=== PATIENT | female | born 1950 | race Caucasian/White ===

== ENCOUNTER → 2017-02-27 | Outpatient (CLI) | payer MEDICARE ==
--- NOTE | 2017-02-27 10:21 | MM ---
Reason for exam: follow-up at short interval from prior study. Last mammogram was performed 7 months ago. History: Patient is postmenopausal, has history of breast cancer at age 59, and previous chest radiation therapy. Excisional biopsy of the right breast, March 02, 2009. Lumpectomy of the right breast, March 02, 2009. Malignant US right guided VAD of the right breast, February 04, 2009. Benign US right guided mammotome of the right breast, March 19, 2008. Benign US right guided mammotome of the right breast, March 19, 2008. Benign left mammotome panel of the left breast, February 12, 2007. Benign excisional biopsy of the left breast, March 01, 1998. 2 radiation therapies of the right breast. Took hormonal contraceptives for 10 years. Took estrogen for 8 years beginning at age 51. Taking antineoplastic for 4 years beginning at age 59. Physical Findings: Nurse did not find any significant physical abnormalities on exam. MG 3D Diag Mammo W/Cad QUINTEN Bilateral CC and MLO view(s) were taken. Prior study comparison: August 10, 2016, left breast MG 3d diag mammo w/cad LT. February 07, 2016, left breast MG 3d work up w/cad LT. January 27, 2015, bilateral MG diagnostic mammo w CAD QUINTEN. January 20, 2014, CAD bilateral diagnostic mammogram. The breast tissue is heterogeneously dense. This may lower the sensitivity of mammography. Previous mammotome biopsy in the right and left breast. There is chronic nodularity bilaterally. Post surgical and post therapy changes in the right breast. Questionable new nodular asymmetry superior right breast at a middle depth without clear correlation on the CC view. These results were verbally communicated with the patient and result sheet given to the patient on 02/27/17. ASSESSMENT: Incomplete: need additional imaging evaluation, BI-RAD 0 RECOMMENDATION: Ultrasound of the left breast. (follow up from prior)
--- NOTE | 2017-02-27 10:28 | USB ---
Reason for exam: additional evaluation requested from abnormal screening. History: Patient is postmenopausal, has history of breast cancer at age 59, and previous chest radiation therapy. Excisional biopsy of the right breast, March 02, 2009. Lumpectomy of the right breast, March 02, 2009. Malignant US right guided VAD of the right breast, February 04, 2009. Benign US right guided mammotome of the right breast, March 19, 2008. Benign US right guided mammotome of the right breast, March 19, 2008. Benign left mammotome panel of the left breast, February 12, 2007. Benign excisional biopsy of the left breast, March 01, 1998. 2 radiation therapies of the right breast. Took hormonal contraceptives for 10 years. Took estrogen for 8 years beginning at age 51. Taking antineoplastic for 4 years beginning at age 59. US Breast LT Left breast ultrasound includes all four quadrants, the retroareolar region and axilla. Finding demonstrate a 0.7 x 0.5 x 0.8cm oval, cystic lesion at 1 o'clock , a 0.5 x 0.4 x 0.4cm round cystic lesion at 10 o'clock, a 0.3 x 0.2 x 0.3cm oval lesion too small to characterize at 11 o'clock, a 0.7 x 0.5 x 0.6cm cystic lesion at 11 o'clock echoes likely artifactual from deep positioning, a 0.3 x 0.3 x 0.4cm lesion too small to characterize at 11 o'clock and a 0.8 x 0.5 x 0.7cm oval, cystic cluster at 1 o'clock, 6 x 5 x 7mm previously, not significantly changed suggesting a benign etiology. These results were verbally communicated with the patient and result sheet given to the patient on 02/27/17. ASSESSMENT: Probably benign, BI-RAD 3 RECOMMENDATION: Follow-up diagnostic mammogram in 6 months. (right, for findings on mammogram of the same day) [facility]
== END | disposition home or self-care (01) ==
LOC: RADMAMWWP 07:37
PROVIDERS: ATTEND Internal Medicine
DX: R92.8 Other abnormal and inconclusive findings on diagnostic imaging of breast (principal)
CPT/HCPCS: 76641; G0204; G0279

== ENCOUNTER → 2018-12-05 | Outpatient (CLI) | payer MEDICARE ==
--- NOTE | 2018-12-09 11:01 | MM ---
Reason for exam: additional evaluation requested from prior study. Last mammogram was performed 1 year and 3 months ago. History: Patient is postmenopausal, has history of breast cancer at age 59, and previous chest radiation therapy. Excisional biopsy of the right breast, March 02, 2009. Lumpectomy of the right breast, March 02, 2009. Malignant US right guided VAD of the right breast, February 04, 2009. Benign US right guided mammotome of the right breast, March 19, 2008. Benign US right guided mammotome of the right breast, March 19, 2008. Benign left mammotome panel of the left breast, February 12, 2007. Benign excisional biopsy of the left breast, March 01, 1998. 2 radiation therapies of the right breast. Took hormonal contraceptives for 10 years. Took estrogen for 8 years beginning at age 51. Taking antineoplastic for 4 years beginning at age 59. Physical Findings: Nurse did not find any significant physical abnormalities on exam. MG 3D Diag Mammo W/Cad QUINTEN Bilateral CC and MLO view(s) were taken. Prior study comparison: September 18, 2017, left breast MG diagnostic mammo LT w CAD. February 27, 2017, bilateral MG 3d diag mammo w/cad QUINTEN. The breast tissue is extremely dense which could obscure a lesion on mammography. Bilateral previous mammotome biopsies. Post biopsy changes in the right. No significant new findings when compared with prior studies. These results were verbally communicated with the patient and result sheet given to the patient on 12/06/18. ASSESSMENT: Benign, BI-RAD 2 RECOMMENDATION: Routine screening mammogram of both breasts in 1 year.
== END | disposition home or self-care (01) ==
LOC: RADMAMWWP 08:19
PROVIDERS: ATTEND Internal Medicine
DX: Z08 Encounter for follow-up examination after completed treatment for malignant neoplasm (principal); Z85.3 Personal history of malignant neoplasm of breast
CPT/HCPCS: 77066; G0279; 77062

== ENCOUNTER → 2020-05-26 | Outpatient (CLI) | payer MEDICARE ==
[2020-05-26 11:18] LABS: Basophils % (A) 1 %; Eosinophils # (A) 0.1 k/uL (0-0.7); Eosinophils % (A) 2 %; HCT 48.5 % (34.0-46.0); HGB 16.2 gm/dL (11.4-16.0); Lymphocytes # (A) 1.5 k/uL (1.0-4.8); Lymphocytes % (A) 26 %; MCH 33.1 pg (25.0-35.0); MCHC 33.3 g/dL (31.0-37.0); MCV 99.2 fL (80.0-100.0); Mean Platelet Volume 7.7; Monocytes # (A) 0.2 k/uL (0-1.0); Monocytes % (A) 4 %; Neutrophils # (A) 3.7 k/uL (1.3-7.7); Neutrophils % (A) 66 %; Platelet Count 176 k/uL (150-450); RBC 4.89 m/uL (3.80-5.40); RDW 12.9 % (11.5-15.5); WBC 5.7 k/uL (3.8-10.6)
[2020-05-26 11:28] LABS: ALT 25 U/L (4-34); AST 34 U/L (14-36); African American GFR (CKD) >90 (>60 ml/min/1.73 sqM); Albumin 4.7 g/dL (3.5-5.0); Alkaline Phosphatase 82 U/L (38-126); Anion Gap 7 mmol/L; Blood Urea Nitrogen 20 mg/dL (7-17); Calcium 9.7 mg/dL (8.4-10.2); Carbon Dioxide 29 mmol/L (22-30); Chloride 104 mmol/L (98-107); Glucose 97 mg/dL (74-99); Non-African American GFR(CKD) 84 (>60 ml/min/1.73 sqM); Potassium 5.4 mmol/L (3.5-5.1); Sodium 140 mmol/L (137-145); Total Bilirubin 0.9 mg/dL (0.2-1.3); Total Protein 7.2 g/dL (6.3-8.2)
[2020-05-26 12:49] LABS: Cholesterol 242 mg/dL (<200); HDL Cholesterol 61 mg/dL (40-60); LDL Cholesterol,Calculated 156 mg/dL (0-99); Triglycerides 124 mg/dL (<150)
--- NOTE | 2020-05-27 09:09 | MM ---
Reason for exam: screening (asymptomatic). Last mammogram was performed 1 year and 6 months ago. History: Patient is postmenopausal, has history of breast cancer at age 59, and previous chest radiation therapy. Excisional biopsy of the right breast, March 02, 2009. Lumpectomy of the right breast, March 02, 2009. Malignant US right guided VAD of the right breast, February 04, 2009. Benign US right guided mammotome of the right breast, March 19, 2008. Benign US right guided mammotome of the right breast, March 19, 2008. Benign left mammotome panel of the left breast, February 12, 2007. Benign excisional biopsy of the left breast, March 01, 1998. 2 radiation therapies of the right breast. Took hormonal contraceptives for 10 years. Took estrogen for 8 years beginning at age 51. Taking antineoplastic for 4 years beginning at age 59. Physical Findings: A clinical breast exam by your physician is recommended on an annual basis and results should be correlated with mammographic findings. MG 3D Screening Mammo W/Cad Bilateral CC and MLO view(s) were taken. Prior study comparison: December 05, 2018, bilateral MG 3d diag mammo w/cad QUINTEN. September 18, 2017, left breast MG diagnostic mammo LT w CAD. The breast tissue is heterogeneously dense. This may lower the sensitivity of mammography. Stable benign calcifications. There is no discrete abnormality. Stable post operative changes right breast. No significant changes when compared with prior studies. ASSESSMENT: Benign, BI-RAD 2 RECOMMENDATION: Routine screening mammogram of both breasts in 1 year.
== END | disposition home or self-care (01) ==
LOC: RADMAMWWP 10:14
PROVIDERS: ATTEND Internal Medicine
DX: Z12.31 Encounter for screening mammogram for malignant neoplasm of breast (principal); Z13.6 Encounter for screening for cardiovascular disorders; C50.919 Malignant neoplasm of unspecified site of unspecified female breast
CPT/HCPCS: 36415; 77063; 77067; 80053; 80061; 82306; 85025

== ENCOUNTER → 2021-07-05 | Outpatient (CLI) | payer MEDICARE ==
--- NOTE | 2021-07-06 09:42 | MM ---
Reason for exam: additional evaluation requested from prior study. Last mammogram was performed 1 year and 1 month ago. History: Patient is postmenopausal, has history of breast cancer at age 59, previous chest radiation therapy, and history of other cancer. Excisional biopsy of the right breast, March 02, 2009. Lumpectomy of the right breast, March 02, 2009. Malignant US right guided VAD of the right breast, February 04, 2009. Radiation therapy of the right breast, 2008. Benign US right guided mammotome of the right breast, March 19, 2008. Benign US right guided mammotome of the right breast, March 19, 2008. Benign left mammotome panel of the left breast, February 12, 2007. Benign excisional biopsy of the left breast, March 01, 1998. 2 radiation therapies of the right breast. Took hormonal contraceptives for 10 years. Took estrogen for 8 years beginning at age 51. Took antineoplastic for 5 years beginning at age 59. Physical Findings: Nurse did not find any significant physical abnormalities on exam. MG 3D Diag Mammo W/Cad QUINTEN Bilateral CC and MLO view(s) were taken. Prior study comparison: May 26, 2020, bilateral MG 3d screening mammo w/cad. December 05, 2018, bilateral MG 3d diag mammo w/cad QUINTEN. The breast tissue is heterogeneously dense. This may lower the sensitivity of mammography. Upper inner distortion left breast 5.5cm from nipple. Stable post operative changes right breast. This finding is changed when compared with previous exams. These results were verbally communicated with the patient and result sheet given to the patient on 07/05/21. ASSESSMENT: Incomplete: need additional imaging evaluation, BI-RAD 0 RECOMMENDATION: Ultrasound of the left breast.
--- NOTE | 2021-07-06 09:45 | USB ---
Reason for exam: additional evaluation requested from abnormal screening. History: Patient is postmenopausal, has history of breast cancer at age 59, previous chest radiation therapy, and history of other cancer. Excisional biopsy of the right breast, March 02, 2009. Lumpectomy of the right breast, March 02, 2009. Malignant US right guided VAD of the right breast, February 04, 2009. Radiation therapy of the right breast, 2008. Benign US right guided mammotome of the right breast, March 19, 2008. Benign US right guided mammotome of the right breast, March 19, 2008. Benign left mammotome panel of the left breast, February 12, 2007. Benign excisional biopsy of the left breast, March 01, 1998. 2 radiation therapies of the right breast. Took hormonal contraceptives for 10 years. Took estrogen for 8 years beginning at age 51. Took antineoplastic for 5 years beginning at age 59. US Breast Limited LT Left limited breast ultrasound including focal area of concern, retroareolar and axilla demonstrates a 0.6 x 0.5 x 0.6cm round, lobular, mixed, avascular lesion at 1 o'clock, possible debris filled cyst, a 0.5 x 0.5 x 0.6cm oval, cystic lesion at 1 o'clock, simple cyst, a 1.0 x 0.6 x 0.7cm oval, cystic lesion at 1 o'clock, stable from 2016 and a 0.8 x 0.6 x 0.7cm oval, cystic cluster at 2 o'clock, stable from 2016. These results were verbally communicated with the patient and result sheet given to the patient on 07/05/21. ASSESSMENT: Benign, BI-RAD 2 RECOMMENDATION: Follow-up diagnostic mammogram of both breasts in 1 year.
== END | disposition home or self-care (01) ==
LOC: RADMAMWWP 14:27
PROVIDERS: ATTEND Family Medicine
DX: C50.919 Malignant neoplasm of unspecified site of unspecified female breast (principal); R92.8 Other abnormal and inconclusive findings on diagnostic imaging of breast
CPT/HCPCS: 77066; 76642; G0279; 77062

== ENCOUNTER → 2022-04-18 | Outpatient (CLI) | payer MEDICARE ==
--- NOTE | 2022-04-19 07:32 | CA ---
Transthoracic Echo Report Name: Sana Curry Age: 72 Gender: F : 1950 Exam Date: 04/18/2022 13:34 Exam Location: [facility] Ht (in): 53 Wt (lb): 167 Ordering Physician: Queenie Hutchinson MD Attending/Referring Phys: Trauma Nurse Rashmi Carbajal RDCS Procedure CPT: Indications: R00.2 palpitations Cardiac Hx: Technical Quality: Contrast 1: Total Dose (mL): Contrast 2: Total Dose (mL): MEASUREMENTS (Male / Female) Normal Values 2D ECHO LV Diastolic Diameter PLAX 5.0 cm 4.2 - 5.9 / 3.9 - 5.3 cm LV Systolic Diameter PLAX 3.0 cm IVS Diastolic Thickness 1.1 cm 0.6 - 1.0 / 0.6 - 0.9 cm LVPW Diastolic Thickness 1.2 cm 0.6 - 1.0 / 0.6 - 0.9 cm LV Relative Wall Thickness 0.5 RV Internal Dim ED PLAX 3.2 cm LA Systolic Diameter LX 3.7 cm 3.0 - 4.0 / 2.7 - 3.8 cm LA Volume 56.1 cm??? 18 - 58 / 22 - 52 cm??? M-MODE Aortic Root Diameter MM 3.0 cm LA Systolic Diameter MM 4.3 cm LA Ao Ratio MM 1.4 MV E Point Septal Separation 0.8 cm AV Cusp Separation MM 2.0 cm DOPPLER MV Area PHT 3.7 cm??? Mitral E Point Velocity 77.2 cm/s Mitral A Point Velocity 98.2 cm/s Mitral E to A Ratio 0.8 MV Deceleration Time 204.7 ms MV E' Velocity 5.7 cm/s Mitral E to MV E' Ratio 13.5 TR Peak Velocity 176.7 cm/s TR Peak Gradient 12.5 mmHg Right Ventricular Systolic Press 17.5 mmHg FINDINGS Left Ventricle Normal Left ventricular size, wall thickness, systolic function with no obvious regional wall motion abnormalities. Right Ventricle Normal right ventricular size and function. Right ventricular systolic pressure within normal limits. Right Atrium Normal right atrial size. Left Atrium Mildly increased left atrial volume. Mitral Valve Mild mitral regurgitation. Aortic Valve Trileaflet aortic valve. Tricuspid Valve Structurally normal tricuspid valve. Pulmonic Valve Structurally normal pulmonic valve. Pericardium Echo free space anterior to the right ventricle likely represents a fat pad. Aorta Normal size aortic root and proximal ascending aorta. CONCLUSIONS Normal left ventricular thickness Normal left ventricular ejection fraction 55-60% Mild mitral regurgitation No pericardial effusion Previewed by: Dr. Bi Brewster DO (Electronically Signed) Final Date: 19 April 2022 07:31
== END | disposition home or self-care (01) ==
LOC: RADECHMAIN 13:04
PROVIDERS: ATTEND Family Medicine
DX: R00.2 Palpitations (principal)
CPT/HCPCS: 93306

== ENCOUNTER 2022-07-13 11:34 | Day surgery (SDC) | payer MEDICARE ==
[~2022-07-13 11:34] MED LIST: LACTATED RINGERS 1,000 ML IV SCH; LIDOCAINE 1% (10MG/ML) FOR IV START INTRADERMA PRN
[2022-07-13 13:02] VITALS: TEMP 97.3
[2022-07-13] MEDS ORDERED: PROPOFOL 10 MG/ML 20 ML VIAL IV ONE (14:35)
--- NOTE | 2022-07-13 14:52 | P.PCN ---
Date of Procedure: 07/13/22 Procedure(s) Performed: BRIEF HISTORY: Patient is a 72-year-old pleasant white female scheduled for an elective colonoscopy as a part of screening for colorectal neoplasia PROCEDURE PERFORMED: Colonoscopy. PREOPERATIVE DIAGNOSIS: Screening for colon cancer. IV sedation per Anesthesia. PROCEDURE: After informed consent was obtained, the patient, was brought into the endoscopy unit. IV sedation was administered by Anesthesia under continuous monitoring. Digital rectal examination was normal. Initially the Olympus CF-160 flexible video colonoscope was then inserted in the rectum, gradually advanced into the cecum without any difficulty. Careful examination was performed as the scope was gradually being withdrawn. Ileocecal valve and the appendiceal orifice were visualized and appeared normal. Prep was excellent. Mucosa of the cecum, had 3 mm polyp that was removed by cold biopsy. In the transverse colon there was a 4 mm polyp removed by cold biopsy. Rest of the ascending colon, transverse colon, descending colon, sigmoid colon, and rectum appeared normal. Retroflexion was performed in the rectum and no lesions were seen. The patient tolerated the procedure well. IMPRESSION: 3 mm cecal polyp status post cold biopsy 4 mm transverse colon polyp status post cold biopsy RECOMMENDATIONS: Findings of this examination were discussed with the patient as a family. She was advised to follow with the biopsy results. If the biopsies adenoma she can have a repeat colonoscopy in 5 years.
[2022-07-13 15:19] VITALS: BP 159/81; PULSE 64; RESP 17
== END 2022-07-13 15:35 | disposition home or self-care (01) ==
LOC: ORWHC2ENDO 11:34
PROVIDERS: ATTEND Internal Medicine Gastroenterology
DX: Z12.11 Encounter for screening for malignant neoplasm of colon (principal); D12.0 Benign neoplasm of cecum; D12.3 Benign neoplasm of transverse colon; Z88.3 Allergy status to other anti-infective agents; Z79.899 Other long term (current) drug therapy
CPT/HCPCS: 88305; 45380; J2704

== ENCOUNTER → 2023-09-12 | Outpatient (CLI) | payer MEDICARE ==
--- NOTE | 2023-09-12 07:32 | MM ---
Reason for Exam: Follow-up at short interval from prior study. Last mammogram was performed 1 year(s) and 2 month(s) ago. Patient History: Menarche at age 14. First Full-Term at age 31. Late child-bearing (after 31). Left ovary removed at age 51. Right ovary removed at age 51. Hysterectomy at age 51. Postmenopausal. Breast cancer, age 59. Other cancer. Previous chest radiation therapy at age 59. Estrogen for 8 years from age 51 until age 59. Patient used Hormonal Contraceptives for 10 years. 03/02/2009, Lumpectomy on the Right side. 02/04/2009, Malignant Core Biopsy on the right side. 03/19/2008, Benign Core Biopsy on the right side. 03/19/2008, Benign Core Biopsy on the right side. 02/12/2007, Benign Core Biopsy on the left side. 03/01/1998, Benign Excisional Biopsy on the left side. Radiation Therapy, right. Radiation Therapy, right. 2008, Radiation Therapy on the right side. Prior Study Comparison: 12/05/2018 Bilateral Diagnostic Mammogram, [facility]. 05/26/2020 Bilateral Screening Mammogram, [facility]. 07/05/2021 Bilateral Diagnostic Mammogram, [facility]. 07/05/2021 Left Diagnostic Ultrasound, [facility]. 07/06/2022 Bilateral MG 3D diag mammo w/cad [facility], [facility]. Tissue Density: The breast tissue is heterogeneously dense. This may lower the sensitivity of mammography. Findings: Analyzed By CAD. Postprocedural changes right breast with surgical clips and biopsy clip. Left breast biopsy clip. Stable benign-appearing calcific patient's. No new suspicious masses, calcifications or distortions. . Overall Assessment: Benign, BI-RAD 2 Management: Screening Mammogram of both breasts in 1 year. Results were given to the patient verbally at the time of exam. Patient should continue monthly self-breast exams. A clinical breast exam by your physician is recommended on an annual basis. This exam should not preclude additional follow-up of suspicious palpable abnormalities. Note on Aisha scores and lifetime risk: 1. A Aisha score greater than 3% is considered moderate risk. If this is the case, consider specialist referral to assess eligibility for a risk reducing agent. 2. If overall lifetime risk for the development of breast cancer is 20% or higher, the patient may qualify for future screening with alternating mammogram and breast MRI. Electronically signed and approved by: Bruno Lord DO
== END | disposition home or self-care (01) ==
LOC: RADMAMWWP 06:49
PROVIDERS: ATTEND Internal Medicine
DX: C50.111 Malignant neoplasm of central portion of right female breast (principal); R92.333 Mammographic heterogeneous density, bilateral breasts; Z78.0 Asymptomatic menopausal state; Z98.890 Other specified postprocedural states
CPT/HCPCS: 77066; G0279; 77062

== ENCOUNTER → 2024-09-29 | Outpatient (CLI) | payer MEDICARE ==
--- NOTE | 2024-10-04 22:46 | BD ---
EXAMINATION TYPE: Axial Bone Density DATE OF EXAM: 09/29/2024 CLINICAL HISTORY: 74 years old Female. ICD-10 CODE: M85.851 OSTEO , Additional History: Height: 60 Weight: 168 FRAX RISK QUESTIONS: Family History (Parent hip fracture): yes, mother 3. Menopause before 45: no at 51 RISK FACTORS HISTORY OF: height loss, hx of bilat knee replacements, rt breast cancer, lumpectomy with radiation MEDICATIONS: cholesterol meds, hx of radiation for breast cancer, EXAM MEASUREMENTS: Bone mineral densitometry was performed using the [employer] System. Bone mineral density as measured about the Lumbar spine is: ----- L1-L4(G/cm2): 1.204 T Score Values are as follows: ----- L1: 1.5 ----- L2: -1.2 ----- L3: 0.4 ----- L4: 0.0 ----- L1-L4: 0.2 Z Score Values are as follows: ----- L1: 2.9 ----- L2: 0.2 ----- L3: 1.8 ----- L4: 1.4 ----- L1-L4: 1.6 Bone mineral density has: Increased 9.5% since study of: 01.20.2014 Bone mineral density about the R hip (g/cm2): 0.872 Bone mineral density about the L hip (g/cm2): 0.896 T Score values are as follows: -----R Neck: -1.7 -----L Neck: -2.0 -----R Total: -1.1 -----L Total: -0.9 Z Score values are as follows: -----R Neck: -0.1 -----L Neck: -0.4 -----R Total: 0.3 -----L Total: 0.5 Bone mineral density has: Decreased -1.1% since study of: 01.20.2014 FRAX%s: The graph provided illustrates a 20.4% chance for a major osteoporotic fx and a 9.7% chance f or the hips probability for fx in 10 years time. IMPRESSION: Osteopenia (T Score between -2.5 and -1). There is slightly increased risk of fracture and the patient may be considered for treatment. Re-Screen 2-5 years. NOTE: T-SCORE=SD OF THE YOUNG ADULT MEAN. [facility], , 10/04/2024 10:44 PM
--- NOTE | 2024-10-05 09:55 | MM ---
Reason for Exam: Screening (asymptomatic). Last mammogram was performed 1 year(s) and 1 month(s) ago. Patient History: Menarche at age 14. First Full-Term at age 31. Late child-bearing (after 31). Left ovary removed at age 51. Right ovary removed at age 51. Hysterectomy at age 51. Postmenopausal. Breast cancer, age 59. Other cancer. Previous chest radiation therapy at age 59. Estrogen for 8 years from age 51 until age 59. Patient used Hormonal Contraceptives for 10 years. 03/02/2009, Excisional Biopsy on the Right side. 03/02/2009, Lumpectomy on the Right side. 02/04/2009, Malignant Core Biopsy on the right side. 03/19/2008, Benign Core Biopsy on the right side. 03/19/2008, Benign Core Biopsy on the right side. 02/12/2007, Benign Core Biopsy on the left side. 03/01/1998, Benign Excisional Biopsy on the left side. Radiation Therapy, right. Radiation Therapy, right. 2008, Radiation Therapy on the right side. Prior Study Comparison: 07/05/2021 Bilateral Diagnostic Mammogram, [facility]. 07/06/2022 Bilateral MG 3D diag mammo w/cad QUINTEN, [facility]. 09/12/2023 Bilateral MG 3D diag mammo w/cad QU[facility]EN, [facility]. Tissue Density: There are scattered areas of fibroglandular density. Findings: Analyzed By CAD. There is no suspicious group of microcalcifications or new suspicious mass in either breast. Overall Assessment: Negative, BI-RAD 1 Management: Screening Mammogram of both breasts in 1 year. . Patient should continue monthly self-breast exams. A clinical breast exam by your physician is recommended on an annual basis. This exam should not preclude additional follow-up of suspicious palpable abnormalities. Note on Aisha scores and lifetime risk: 1. A Aisha score greater than 3% is considered moderate risk. If this is the case, consider specialist referral to assess eligibility for a risk reducing agent. 2. If overall lifetime risk for the development of breast cancer is 20% or higher, the patient may qualify for future screening with alternating mammogram and breast MRI. [facility], , 10/05/2024 9:52 AM. Electronically signed and approved by: Ritesh Welsh M.D. [facility]
== END | disposition home or self-care (01) ==
LOC: RADMAMWWP 06:53
PROVIDERS: ATTEND Internal Medicine
DX: Z12.31 Encounter for screening mammogram for malignant neoplasm of breast (principal); R92.323 Mammographic fibroglandular density, bilateral breasts; M85.89 Other specified disorders of bone density and structure, multiple sites
CPT/HCPCS: 77063; 77067; 77080